=== PATIENT | male | born 1985 | race Two or more races ===

== ENCOUNTER 2018-05-23 02:55 | Emergency (ER) | payer MEDICAID, OTHER ==
[~2018-05-23] VITALS: Ht 172.7 cm; Wt 77.1 kg
[2018-05-23] MEDS ORDERED: TDAP [DIPH/PERTUSSIS/TET] 0.5 ML VIAL IM ONE ×2 (03:00→03:06)
--- NOTE | 2018-05-23 03:00 | NUR ---
UPPER EXTREMITY INJURY, SEEN BY , WOUND TX PROVIDED.
[2018-05-23 04:38] VITALS: BP 140/79
== END 2018-05-23 04:38 | disposition home or self-care (01) ==
LOC: ER 02:57
DX: S01.112A Laceration without foreign body of left eyelid and periocular area, initial encounter (principal); S05.42XA Penetrating wound of orbit with or without foreign body, left eye, initial encounter; F10.129 Alcohol abuse with intoxication, unspecified; Y90.9 Presence of alcohol in blood, level not specified; W22.8XXA Striking against or struck by other objects, initial encounter; Y93.89 Activity, other specified; Y92.89 Other specified places as the place of occurrence of the external cause; Y99.8 Other external cause status
CPT/HCPCS: 70450-TC; 70486-TC; 90715; A4606; A6403; Z7610

== ENCOUNTER 2018-05-30 15:06 | Emergency (ER) | payer MEDICAID ==
[~2018-05-30] VITALS: Ht 165.1 cm; Wt 68.0 kg
--- NOTE | 2018-05-30 17:28 | NUR ---
CANDY, RAND MAKER REMOVED SUTURES PLACED ON L LOWER EYELID
[2018-05-30 17:29] VITALS: BP 130/80
== END 2018-05-30 17:30 | disposition home or self-care (01) ==
LOC: ER 15:07
DX: S01.112D Laceration without foreign body of left eyelid and periocular area, subsequent encounter (principal); W22.8XXD Striking against or struck by other objects, subsequent encounter; F10.10 Alcohol abuse, uncomplicated; Y90.9 Presence of alcohol in blood, level not specified
CPT/HCPCS: 99281; A4606; Z7610; Z7502